=== PATIENT | female | born 1980 | race American Indian/Alaskan Native ===

== ENCOUNTER 2017-08-08 01:51 | Emergency (ER) | payer OTHER ==
[2017-08-08 03:27] LABS: Basophils % (Auto) 0.6 % (0.0-1.8); Hemoglobin 13.8 gm/dl (10.1-14.3); Mean Corpuscular HGB Conc 35 % (30-34); Mean Corpuscular Hemoglobin 32 pg (28-32); Mean Corpuscular Volume 92 fl (79-97); Platelet Count 212 K/mm3 (140-440); Red Blood Count 4.35 M/mm3 (3.65-5.03); Red Cell Distribution Width 13.2 % (13.2-15.2); White Blood Count 6.5 K/mm3 (4.5-11.0)
[2017-08-08 03:49] LABS: Alanine Aminotransferase 31 units/L (7-56); Albumin 4.4 g/dL (3.9-5); Albumin/Globulin Ratio 1.3 %; Alkaline Phosphatase 60 units/L (35-129); Anion Gap 16 mmol/L; BUN/Creatinine Ratio 12.85; Blood Urea Nitrogen 9 mg/dL (7-17); Calcium 8.8 mg/dL (8.4-10.2); Carbon Dioxide 26 mmol/L (22-30); Chloride 101.4 mmol/L (98-107); Glucose 94 mg/dL (65-100); Lipase 40 units/L (13-60); Potassium 3.8 mmol/L (3.6-5.0); Sodium 140 mmol/L (137-145); Total Protein 7.9 g/dL (6.3-8.2)
[2017-08-08 05:03] LABS: Bacteria,Urine 1+ /HPF (Negative); Bilirubin,Urine NEG (Negative); Blood,Urine LG (Negative); Ketones,Urine NEG (Negative); Leukocyte Esterase,Urine NEG (Negative); Mucus,Urine 3+ /HPF; Nitrite,Urine NEG (Negative); Protein,Urine <15 mg/dL mg/dL (Negative); Urobilinogen,Urine < 2.0 mg/dL (<2.0)
--- NOTE | 2017-08-08 13:18 | Emergency Department Report ---
ED Female HPI - General Chief complaint: Abdominal Pain Stated complaint: VAGINAL BLEEDING & PAIN Time Seen by Provider: 08/08/17 12:59 Source: patient Mode of arrival: Ambulatory Limitations: No Limitations - History of Present Illness MD Complaint: vaginal bleeding -: Gradual, days(s) Severity: mild, moderate Quality: other (does not complain of pain) Consistency: intermittent Improves with: none Worsens with: none Are you Now?: No Associated Symptoms: denies other symptoms, vaginal bleeding - Related Data Allergies Allergy/AdvReac Type Severity Reaction Status Date / Time No Known Allergies Allergy Verified 08/08/17 03:03 ED Review of Systems ROS: Stated complaint: VAGINAL BLEEDING & PAIN Other details as noted in HPI Constitutional: denies: chills, fever Eyes: denies: eye pain, eye discharge, vision change ENT: denies: ear pain, throat pain Respiratory: denies: cough, shortness of breath, wheezing Cardiovascular: denies: chest pain, palpitations Endocrine: no symptoms reported Gastrointestinal: denies: abdominal pain, nausea, diarrhea Genitourinary: as per HPI, abnormal menses. denies: urgency, dysuria, frequency , hematuria, discharge, dyspareunia Musculoskeletal: denies: back pain, joint swelling, arthralgia Skin: denies: rash, lesions Neurological: denies: headache, weakness, paresthesias Psychiatric: denies: anxiety, depression Hematological/Lymphatic: denies: easy bleeding, easy bruising ED Past Medical Hx - Past Medical History Previous Medical History?: No - Surgical History Past Surgical History?: No - Social History Smoking Status: Light Tobacco Smoker Substance Use Type: Alcohol ED Physical Exam - General Limitations: No Limitations General appearance: alert, in no apparent distress - Head Head exam: Present: atraumatic, normocephalic - Eye Eye exam: Present: normal appearance. Absent: scleral icterus - ENT ENT exam: Present: mucous membranes moist - Neck Neck exam: Present: normal inspection - Respiratory Respiratory exam: Present: normal lung sounds bilaterally. Absent: respiratory distress - Cardiovascular Cardiovascular Exam: Present: regular rate, normal rhythm. Absent: systolic murmur, diastolic murmur, rubs, gallop - GI/Abdominal GI/Abdominal exam: Present: soft, normal bowel sounds. Absent: distended, tenderness, guarding, rebound, rigid - Extremities Exam Extremities exam: Present: normal inspection - Back Exam Back exam: Present: normal inspection - Neurological Exam Neurological exam: Present: alert, oriented X3, CN II-XII intact. Absent: motor sensory deficit - Psychiatric Psychiatric exam: Present: normal affect, normal mood - Skin Skin exam: Present: warm, dry, intact, normal color. Absent: rash ED Course Vital Signs 08/08/17 08/08/17 08/08/17 01:53 07:58 11:09 Temperature 98.1 F 97.6 F 98.1 F Pulse Rate 76 57 L 69 Respiratory 18 16 16 Rate Blood Pressure 137/80 119/78 Blood Pressure 101/69 [Right] O2 Sat by Pulse 100 100 100 Oximetry 08/08/17 11:11 Temperature Pulse Rate Respiratory 16 Rate Blood Pressure Blood Pressure [Right] O2 Sat by Pulse 100 Oximetry ED Medical Decision Making - Lab Data Result diagrams: 08/08/17 03:18 08/08/17 03:18 Laboratory Results - last 24 hr 08/08/17 08/08/17 08/08/17 03:18 03:18 03:18 WBC 6.5 RBC 4.35 Hgb 13.8 Hct 40.0 MCV 92 MCH 32 MCHC 35 H RDW 13.2 Plt Count 212 Lymph % (Auto) 37.6 H Williams % (Auto) 7.5 H Eos % (Auto) 1.0 Baso % (Auto) 0.6 Lymph # 2.5 Williams # 0.5 Eos # 0.1 Baso # 0.0 Seg Neutrophils % 53.3 Seg Neutrophils # 3.5 Sodium 140 Potassium 3.8 Chloride 101.4 Carbon Dioxide 26 Anion Gap 16 BUN 9 Creatinine 0.7 Estimated GFR > 60 BUN/Creatinine Ratio 12.85 Glucose 94 Calcium 8.8 Total Bilirubin 0.40 AST 26 ALT 31 Alkaline Phosphatase 60 Total Protein 7.9 Albumin 4.4 Albumin/Globulin Ratio 1.3 Lipase 40 HCG, Qual Negative Urine Color Urine Turbidity Urine pH Ur Specific Walker Urine Protein Urine Glucose (UA) Urine Ketones Urine Blood Urine Nitrite Urine Bilirubin Urine Urobilinogen Ur Leukocyte Esterase Urine WBC (Auto) Urine RBC (Auto) U Epithel Cells (Auto) Urine Bacteria (Auto) Urine Mucus 08/08/17 Unknown WBC RBC Hgb Hct MCV MCH MCHC RDW Plt Count Lymph % (Auto) Williams % (Auto) Eos % (Auto) Baso % (Auto) Lymph # Williams # Eos # Baso # Seg Neutrophils % Seg Neutrophils # Sodium Potassium Chloride Carbon Dioxide Anion Gap BUN Creatinine Estimated GFR BUN/Creatinine Ratio Glucose Calcium Total Bilirubin AST ALT Alkaline Phosphatase Total Protein Albumin Albumin/Globulin Ratio Lipase HCG, Qual Urine Color Yellow Urine Turbidity Clear Urine pH 5.0 Ur Specific Walker 1.025 Urine Protein <15 mg/dl Urine Glucose (UA) Neg Urine Ketones Neg Urine Blood Lg Urine Nitrite Neg Urine Bilirubin Neg Urine Urobilinogen < 2.0 Ur Leukocyte Esterase Neg Urine WBC (Auto) 1.0 Urine RBC (Auto) 4.0 U Epithel Cells (Auto) 2.0 Urine Bacteria (Auto) 1+ Urine Mucus 3+ Urine appears to be likely contaminant. I can't diagnose UTI. Critical care attestation.: If time is entered above; I have spent that time in minutes in the direct care of this critically ill patient, excluding procedure time. ED Disposition Clinical Impression: Dysfunctional uterine bleeding Disposition: DC- TO HOME OR SELFCARE Is pt being admited?: No Does the pt Need Aspirin: No Condition: Stable Instructions: Dysfunctional Uterine Bleeding (ED) Additional Instructions: [facility] [employer] [employer] evaluation is recommended. The referral possibilities. Return any acute change or worsening symptoms as needed. Referrals: PRIMARY CARE [Primary Care Provider] - 3-5 Days [facility] [Outside] - 3-5 Days [facility] [Provider Group] - 3-5 Days Time of Disposition: 13:18
[2017-08-08 13:58] VITALS: BP 111/72
== END 2017-08-08 13:59 | disposition home or self-care (01) ==
LOC: ED 01:51
DX: N93.8 Other specified abnormal uterine and vaginal bleeding (principal); Z72.0 Tobacco use
CPT/HCPCS: 36415; 80053; 81001; 83690; 84703; 85025; 99283